=== PATIENT | female | born 1955 | race Caucasian/White ===

== ENCOUNTER → 2018-11-01 | Outpatient (CLI) | payer MEDICARE ==
--- NOTE | 2018-11-01 15:31 | BD ---
EXAMINATION TYPE: Axial Bone Density DATE OF EXAM: 11/01/2018 COMPARISON: NONE CLINICAL HISTORY: 63-year-old female screening for osteoporosis Height: 63.2 IN Weight: 164 LBS RISK FACTORS HISTORY OF: Active: YES Postmenopausal woman: AGE 52 MEDICATIONS: Additional Medications: HIGH BLOOD PRESSURE MEDS, BABY ASPIRIN EXAM MEASUREMENTS: Bone mineral densitometry was performed using the [employer] System. Bone mineral density as measured about the Lumbar spine is: ----- L1-L4(G/cm2): 1.336 T Score Values are as follows: ----- L2: 0.7 ----- L3: 1.4 ----- L4: 2.1 ----- L1-L4: 1.3 Bone mineral density BASELINE Bone mineral density about the R hip (g/cm2): 1.037 Bone mineral density about the L hip (g/cm2): 1.039 T Score values are as follows: -----R Neck: 0.0 -----L Neck: 0.0 -----R Total: 0.3 -----L Total: 0.4 Bone mineral density BASELINE IMPRESSION: Normal (Values between +1 and -1 indicate normal bone mass). Consider repeating this study in 5 year s or sooner if there is some new clinical indication. NOTE: T-SCORE=SD OF THE YOUNG ADULT MEAN.
--- NOTE | 2018-11-02 07:51 | MM ---
Reason for exam: screening (asymptomatic). Last mammogram was performed 2 years and 6 months ago. History: Patient is postmenopausal. Family history of breast cancer in maternal aunt and breast cancer in paternal grandmother. Benign US biopsy breast add'l VAD RT of the right breast, April 04, 2014. Benign US biopsy breast VAD RT of the right breast, March 30, 2014. Physical Findings: A clinical breast exam by your physician is recommended on an annual basis and results should be correlated with mammographic findings. MG Screening Mammo w CAD Bilateral CC and MLO view(s) were taken. Prior study comparison: April 22, 2016, bilateral MG diagnostic mammo w CAD E[facility]IS. March 19, 2015, bilateral MG diagnostic mammo w CAD E[facility]. There are scattered fibroglandular densities. Previous mammotome biopsy in the right breast. There is chronic nodularity in the right breast. No significant changes when compared with prior studies. ASSESSMENT: Benign, BI-RAD 2 RECOMMENDATION: Routine screening mammogram of both breasts in 1 year.
== END | disposition home or self-care (01) ==
LOC: RADMAMWWP 07:34
PROVIDERS: ATTEND Family Medicine
DX: Z12.31 Encounter for screening mammogram for malignant neoplasm of breast (principal); Z13.820 Encounter for screening for osteoporosis
CPT/HCPCS: 77067; 77080

== ENCOUNTER → 2019-11-15 | Outpatient (CLI) | payer MEDICARE ==
--- NOTE | 2019-11-17 14:15 | MM ---
Reason for exam: screening (asymptomatic). Last mammogram was performed 1 year ago. History: Patient is postmenopausal. Family history of breast cancer in maternal aunt and breast cancer in paternal grandmother. Benign US biopsy breast add'l VAD RT of the right breast, April 04, 2014. Benign US biopsy breast VAD RT of the right breast, March 30, 2014. Physical Findings: A clinical breast exam by your physician is recommended on an annual basis and results should be correlated with mammographic findings. MG Screening Mammo w CAD Bilateral CC and MLO view(s) were taken. Prior study comparison: November 01, 2018, bilateral MG screening mammo w CAD. April 22, 2016, bilateral MG diagnostic mammo w CAD ELLIS. There are scattered fibroglandular densities. Previous mammotome biopsy in the right breast x 2. There is chronic nodularity in the right breast. ASSESSMENT: Benign, BI-RAD 2 RECOMMENDATION: Routine screening mammogram of both breasts in 1 year.
== END | disposition home or self-care (01) ==
LOC: RADMAMWWP 10:13
PROVIDERS: ATTEND Family Medicine
DX: Z12.31 Encounter for screening mammogram for malignant neoplasm of breast (principal)
CPT/HCPCS: 77067

== ENCOUNTER → 2021-02-13 | Outpatient (CLI) | payer MEDICARE ==
--- NOTE | 2021-02-14 12:55 | BD ---
EXAMINATION TYPE: Axial Bone Density DATE OF EXAM: 02/13/2021 COMPARISON: NONE CLINICAL HISTORY: Height: 5 FT 4 IN Weight: 176 FRAX RISK QUESTIONS: Alcohol (3 or more units per day): NO Family History (Parent hip fracture): NO Glucocorticoids (More than 3mos): NO (Ex: prednisone, prednisolone, methylprednisolone, dexamethasone, and hydrocortisone). History of Fracture in Adulthood: NO Secondary Osteoporosis: 1. Type 1 Diabetes: NO 2. Hyperthyroidism: NO 3. Menopause before 45: NO 4. Malnutrition: NO 5. Chronic liver disease: NO Rheumatoid Arthritis: NO Current Tobacco Use: NO RISK FACTORS HISTORY OF: Surgery to Spine/Hip(right/left)/Wrist (right/left): NO Family History of Osteoporosis: NO Active: YES Diet low in dairy products/other sources of calcium: NO Postmenopausal woman: AGE 52 Take estrogen and/or progesterone medications: NONE Lost more than 2 inches in height since high school: NO MEDICATIONS: Additional Medications: BLOOD PRESSURE MEDS , Additional History: EXAM MEASUREMENTS: Bone mineral densitometry was performed using the [email or web address] System. Bone mineral density as measured about the Lumbar spine is: ----- L1-L4(G/cm2): 1.309 T Score Values are as follows: ----- L2: -0.1 ----- L3: 1.7 ----- L4: 1.8 ----- L1-L4: 1.1 Bone mineral density has: DECREASED -1.9 % since study of: 2017 Bone mineral density about the R hip (g/cm2): 0.996 Bone mineral density about the L hip (g/cm2): 0.989 T Score values are as follows: -----R Neck: -0.3 -----L Neck: -0.3 -----R Total: -0.1 -----L Total: 0.0 Bone mineral density has: DECREASED -4.8 % since study of: 2017 IMPRESSION: Normal (Values between +1 and -1 indicate normal bone mass). Consider repeating this study in 5 year s or sooner if there is some new clinical indication. NOTE: T-SCORE=SD OF THE YOUNG ADULT MEAN.
--- NOTE | 2021-02-15 11:00 | MM ---
Reason for exam: screening (asymptomatic). Last mammogram was performed 1 year and 3 months ago. History: Patient is postmenopausal. Family history of breast cancer in maternal aunt and breast cancer in paternal grandmother. Benign US biopsy breast add'l VAD RT of the right breast, April 04, 2014. Benign US biopsy breast VAD RT of the right breast, March 30, 2014. Physical Findings: A clinical breast exam by your physician is recommended on an annual basis and results should be correlated with mammographic findings. MG 3D Screening Mammo W/Cad Bilateral CC and MLO view(s) were taken. Prior study comparison: November 15, 2019, bilateral MG screening mammo w CAD. November 01, 2018, bilateral MG screening mammo w CAD. There are scattered fibroglandular densities. Previous mammotome biopsy in the right breast. No significant changes when compared with prior studies. ASSESSMENT: Benign, BI-RAD 2 RECOMMENDATION: Routine screening mammogram of both breasts in 1 year.
== END | disposition home or self-care (01) ==
LOC: RADMAMWWP 14:35
PROVIDERS: ATTEND Family Medicine
DX: Z12.31 Encounter for screening mammogram for malignant neoplasm of breast (principal); Z78.0 Asymptomatic menopausal state; Z80.3 Family history of malignant neoplasm of breast
CPT/HCPCS: 77063; 77067; 77080

== ENCOUNTER → 2021-05-29 | Outpatient (CLI) | payer MEDICARE ==
[2021-05-29 10:29] VITALS: BP 173/70; PULSE 77; RESP 18; TEMP 98
--- NOTE | 2021-05-29 11:39 | P.HPOB ---
History of Present Illness H&P Date: 05/29/21 Chief Complaint: The patient is here for her routine gynecologic exam and ma mmogram. This is a 66-year-old with an LMP 2005. The patient is here to establish with this office. She states it is been more than 20 years since her last pelvic exam. She is without gynecologic complaints and denies any postmenopausal bleeding. Review of Systems She lost weight with [employer] more than one year ago, but has gained about 32 pounds back over the past year and a half. She attributes this to COVID pandemic weight gain. She denies respiratory, cardiac and G.I. problems. She denies maltreatment or problems with falling. : she denies any significant problems with urinary leakage. 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 History of Any Multi-Drug Resistant Organisms: None Reported Past Surgical History: Breast Surgery Additional Past Surgical History / Comment(s): Benign breast biopsies. Colonoscopy 2014(next after 10yr) Past Psychological History: No Psychological Hx Reported Smoking Status: Never smoker Past Alcohol Use History: None Reported Past Drug Use History: None Reported Additional History: She has been since 1971 and is sexually active. 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 She does watch some of her grandkids during the week. - Past Family History Father Family Medical History: Myocardial Infarction ([place]) Additional Family Medical History / Comment(s): . Paternal grandmother had breast cancer. Mother Family Medical History: CVA/TIA Additional Family Medical History / Comment(s): . Maternal aunt had breast cancer. Medications and Allergies Home Medications Medication Instructions Recorded Confirmed Type Aspirin [Adult Low Dose Aspirin EC] 81 mg PO DAILY 07/25/16 05/29/21 History Lisinopril/Hydrochlorothiazide 0.5 tab PO QAM 07/25/16 05/29/21 History [Lisinopril-Hctz 20-25 mg Tab] Lisinopril/Hydrochlorothiazide 1 tab PO HS 07/25/16 05/29/21 History [Lisinopril-Hctz 20-25 mg Tab] Spironolactone [Aldactone] 12.5 mg PO DAILY 05/29/21 05/29/21 History Allergies Allergy/AdvReac Type Severity Reaction Status Date / Time No Known Allergies Allergy Verified 05/29/21 10:06 Exam Vital Signs Temp Pulse Resp BP Pulse Ox 05/29/21 10:06 98.0 F 77 18 173/70 97 Intake and Output 05/28/21 05/29/21 05/29/21 22:59 06:59 14:59 Other: Weight 82.554 kg Height 5 feet 4 inches, weight 182 pounds, BMI 31.2. This is a well-developed well-nourished white female who is alert and oriented times 3 in no acute distress. HEENT: Within normal limits. NECK: Supple without mass or thyromegaly. CHEST AND LUNGS: Clear to auscultation. HEART: Regular rate and rhythm. BREASTS: Are without mass or discharge. AXILLARY EXAM: Negative for adenopathy. BACK: Negative for CVA tenderness. ABDOMEN: Soft, nontender, without palpable masses. PELVIC EXAM: Normal external genitalia with mild atrophy. Cervix and vagina appear normal is mild atrophy. There is no unusual discharge. There is no evidence of prolapse. The uterus is midposition, nongravid size and nontender. There are no palpable adnexal masses or tenderness. RECTAL EXAM: Rectovaginal exam is negative for mass or tenderness and is negative for occult blood. EXTREMITIES: Nontender. IMPRESSION: 1. 66-year-old menopausal female with normal gynecologic exam. 2. Inadequate cervical screening in the past years since it has been about 25 years since her last pelvic exam. 3. Elevated blood pressure with history of chronic hypertension. PLAN: 1. Pap smear was performed. This will be continued until we have had 3 ne gative Pap smears within 10 years. 2. Self breast awareness was discussed with the patient. 3. Screening mammogram was recently done on 02/13/2021 and was benign. This will be repeated in 1 year. 4. Osteoporosis prevention was discussed. I have stressed the importance of adequate calcium, vitamin D and regular exercise. Recommended amounts of calcium and vitamin D were also discussed. Bone density testing was recently done on 02/13/2021 and was normal. We will plan on repeating this in about 5-6 years. 5. We have discussed her elevated blood pressure. I have recommended that she check her own blood pressure at home on a regular basis since she does have a blood pressure cuff. She will follow-up with Dr. Sanchez for blood pressure elevations. 6. She has not received the Covid vaccination. I recommended that she reconsider her decision on not getting the vaccination. We have discussed reasons why this would be beneficial. She will reconsider it. 7. She was advised to return in one year for her annual well woman exam.
== END ==
LOC: WWCWWP 09:53
PROVIDERS: ATTEND Obstetrics & Gynecology
DX: Z01.419 Encounter for gynecological examination (general) (routine) without abnormal findings (principal); I10 Essential (primary) hypertension; Z98.890 Other specified postprocedural states; Z79.899 Other long term (current) drug therapy

== ENCOUNTER → 2021-06-12 | Outpatient (CLI) | payer MEDICARE ==
--- NOTE | 2021-06-12 09:44 | P.PN ---
Progress Note - Text Progress Note Date: 06/12/21 The patient has come for a repeat Pap smear. Pap smear done on 05/29/2021 came back as unsatisfactory because of limited cellularity. Blood pressure 160/95, height 5 feet 4 inches, weight 182 pounds, temperature 98.2, pulse 83, pulse oximeter 99%. Cervix and vagina appear normal. There is no unusual discharge. Repeat Pap smear was performed.
== END ==
DX: Z01.42 Encounter for cervical smear to confirm findings of recent normal smear following initial abnormal smear (principal)

== ENCOUNTER 2021-12-16 14:32 | Emergency (ER) | payer MEDICARE ==
[2021-12-16 14:46] VITALS: TEMP 99.2
[2021-12-16 15:29] LABS: Basophils % (A) 0 %; Eosinophils # (A) 0.1 k/uL (0-0.7); Eosinophils % (A) 1 %; HCT 38.9 % (34.0-46.0); HGB 13.1 gm/dL (11.4-16.0); Lymphocytes # (A) 2.7 k/uL (1.0-4.8); Lymphocytes % (A) 26 %; MCH 30.7 pg (25.0-35.0); MCHC 33.8 g/dL (31.0-37.0); MCV 90.9 fL (80.0-100.0); Mean Platelet Volume 7.6; Monocytes # (A) 0.6 k/uL (0-1.0); Monocytes % (A) 5 %; Neutrophils % (A) 67 %; Platelet Count 346 k/uL (150-450); RBC 4.28 m/uL (3.80-5.40); RDW 12.7 % (11.5-15.5); WBC 10.5 k/uL (3.8-10.6)
--- NOTE | 2021-12-16 15:36 | ED ---
SOB HPI - General Chief Complaint: Shortness of Breath Stated Complaint: Chest Heavy Time Seen by Provider: 12/16/21 14:52 Source: patient Mode of arrival: wheelchair Limitations: no limitations - History of Present Illness Initial Comments: Patient is a 66-year-old female with a past medical history of retention who presents to the emergency department with a chief complaint of chest heaviness and shortness of breath since yesterday. Patient reports that she was diagnosed with COVID-19 2.5 weeks ago and on 12/11/21 she started to feel a lot less sym ptomatic. Yesterday she experienced new onset chest heaviness and worsening of shortness of breath. Patient states that there is general heaviness all over the chest and that she is winded easier. She has never experienced chest heaviness before. She denies fever, chills, headache, congestion, r hinorrhea,dizziness, palpitations, abdominal pain, and bilateral leg pain. Patient denies alcohol and tobacco abuse. Family history of heart disease includes mother with hypertension and father with myocardial infarction. Of note, patient is feeling very anxious today as is in preop for multiple stent insertion due to having a heart attack today. - Related Data Home Medications Medication Instructions Recorded Confirmed Aspirin [Adult Low Dose Aspirin EC] 81 mg PO DAILY 07/25/16 06/12/21 Lisinopril/Hydrochlorothiazide 0.5 tab PO QAM 07/25/16 06/12/21 [Lisinopril-Hctz 20-25 mg Tab] Lisinopril/Hydrochlorothiazide 1 tab PO HS 07/25/16 06/12/21 [Lisinopril-Hctz 20-25 mg Tab] Spironolactone [Aldactone] 12.5 mg PO DAILY 05/29/21 06/12/21 Ascorbic Acid [Vitamin C] 1,000 mg PO DAILY 12/16/21 12/16/21 Calcium Carbonate/Vitamin D3 1 cap PO DAILY 12/16/21 12/16/21 [Calcium 600 mg-D3 10 Mcg (400 Iu)] Multivitamins, Thera [Multivitamin 1 tab PO DAILY 12/16/21 12/16/21 (formulary)] Zinc 50 mg PO DAILY 12/16/21 12/16/21 Previous Rx's Medication Instructions Recorded Albuterol Inhaler [Ventolin Hfa 2 puff INHALATION RT-QID 10 Days 12/16/21 Inhaler] #8 gm Allergies Allergy/AdvReac Type Severity Reaction Status Date / Time No Known Allergies Allergy Verified 12/16/21 16:10 Review of Systems ROS Statement: Those systems with pertinent positive or pertinent negative responses have been documented in the HPI. ROS Other: All systems not noted in ROS Statement are negative. 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 History of Any Multi-Drug Resistant Organisms: None Reported Past Surgical History: Breast Surgery Additional Past Surgical History / Comment(s): Benign breast biopsies. Colonoscopy 2014(next after 10yr) Past Psychological History: No Psychological Hx Reported Smoking Status: Never smoker Past Alcohol Use History: None Reported Past Drug Use History: None Reported - Past Family History Father Family Medical History: Myocardial Infarction ([place]) Additional Family Medical History / Comment(s): . Paternal grandmother had breast cancer. Mother Family Medical History: CVA/TIA Additional Family Medical History / Comment(s): . Maternal aunt had breast cancer. General Exam Limitations: no limitations General appearance: alert, in no apparent distress Head exam: Present: atraumatic, normocephalic, normal inspection Eye exam: Present: normal appearance, PERRL, EOMI. Absent: scleral icterus, conjunctival injection, periorbital swelling ENT exam: Present: normal exam, mucous membranes moist Respiratory exam: Present: normal lung sounds bilaterally. Absent: respiratory distress, wheezes, rales, rhonchi, stridor Cardiovascular Exam: Present: regular rate, normal rhythm, normal heart sounds. Absent: systolic murmur, diastolic murmur, rubs, gallop, clicks GI/Abdominal exam: Present: soft. Absent: distended, tenderness, guarding, rebound, rigid Extremities exam: Present: normal inspection, full ROM, normal capillary refill. Absent: tenderness, pedal edema, joint swelling, calf tenderness Neurological exam: Present: alert, oriented X3, CN II-XII intact Psychiatric exam: Present: normal affect, normal mood Skin exam: Present: warm, dry, intact, normal color. Absent: rash Course Vital Signs 12/16/21 12/16/21 14:43 16:21 Temperature 99.2 F Pulse Rate 80 67 Respiratory 16 20 Rate Blood Pressure 161/69 136/65 O2 Sat by Pulse 100 100 Oximetry Medical Decision Making - Medical Decision Making This is a 66-year-old female with a past medical history of hypertension and COVID-19 diagnosed 2.5 weeks ago who presents with chest heaviness and shortness of breath 1 day. She is hemodynamically stable. EKG reveals sinus rhythm with frequent premature ventricular complexes. CBC is within normal limits. CMP r eveals moderately high BUN and creatinine. Patient is COVID-19 positive. D- dimer is negative. Troponin is negative 1. Chest x-ray reveals mild cardiomegaly without acute pulmonary process. Patient given saline bolus for JOSUE. On reevaluation patient has no chest heaviness. Patient has heart score of 5. Results discussed with patient. Risks versus benefits discussed. Patient reports she would like to go home with strict return parameters. I will discharge her with an inhaler for shortness of breath. - Lab Data Result diagrams: 12/16/21 15:18 12/16/21 15:18 Lab Results 12/16/21 12/16/21 12/16/21 Range/Units 15:18 15:18 15:18 WBC 10.5 (3.8-10.6) k/uL RBC 4.28 (3.80-5.40) m/uL Hgb 13.1 (11.4-16.0) gm/dL Hct 38.9 (34.0-46.0) % MCV 90.9 (80.0-100.0) fL MCH 30.7 (25.0-35.0) pg MCHC 33.8 (31.0-37.0) g/dL RDW 12.7 (11.5-15.5) % Plt Count 346 (150-450) k/uL MPV 7.6 Neutrophils % 67 % Lymphocytes % 26 % Monocytes % 5 % Eosinophils % 1 % Basophils % 0 % Neutrophils # 7.0 (1.3-7.7) k/uL Lymphocytes # 2.7 (1.0-4.8) k/uL Monocytes # 0.6 (0-1.0) k/uL Eosinophils # 0.1 (0-0.7) k/uL Basophils # 0.0 (0-0.2) k/uL D-Dimer (<0.60) mg/L FEU Sodium 128 L (137-145) mmol/L Potassium 5.2 H (3.5-5.1) mmol/L Chloride 100 (98-107) mmol/L Carbon Dioxide 23 (22-30) mmol/L Anion Gap 5 mmol/L BUN 42 H (7-17) mg/dL Creatinine 1.33 H (0.52-1.04) mg/dL Est GFR (CKD-EPI)AfAm 47 (>60 ml/min/1.73 sqM) Est GFR (CKD-EPI)NonAf 41 (>60 ml/min/1.73 sqM) Glucose 97 (74-99) mg/dL Calcium 8.9 (8.4-10.2) mg/dL Total Bilirubin 0.7 (0.2-1.3) mg/dL AST 30 (14-36) U/L ALT 61 H (4-34) U/L Alkaline Phosphatase 72 (38-126) U/L Troponin I <0.012 (0.000-0.034) ng/mL Total Protein 6.7 (6.3-8.2) g/dL Albumin 3.8 (3.5-5.0) g/dL Coronavirus (PCR) (Not Detectd) 12/16/21 12/16/21 Range/Units 15:18 15:18 WBC (3.8-10.6) k/uL RBC (3.80-5.40) m/uL Hgb (11.4-16.0) gm/dL Hct (34.0-46.0) % MCV (80.0-100.0) fL MCH (25.0-35.0) pg MCHC (31.0-37.0) g/dL RDW (11.5-15.5) % Plt Count (150-450) k/uL MPV Neutrophils % % Lymphocytes % % Monocytes % % Eosinophils % % Basophils % % Neutrophils # (1.3-7.7) k/uL Lymphocytes # (1.0-4.8) k/uL Monocytes # (0-1.0) k/uL Eosinophils # (0-0.7) k/uL Basophils # (0-0.2) k/uL D-Dimer 0.31 (<0.60) mg/L FEU Sodium (137-145) mmol/L Potassium (3.5-5.1) mmol/L Chloride (98-107) mmol/L Carbon Dioxide (22-30) mmol/L Anion Gap mmol/L BUN (7-17) mg/dL Creatinine (0.52-1.04) mg/dL Est GFR (CKD-EPI)AfAm (>60 ml/min/1.73 sqM) Est GFR (CKD-EPI)NonAf (>60 ml/min/1.73 sqM) Glucose (74-99) mg/dL Calcium (8.4-10.2) mg/dL Total Bilirubin (0.2-1.3) mg/dL AST (14-36) U/L ALT (4-34) U/L Alkaline Phosphatase (38-126) U/L Troponin I (0.000-0.034) ng/mL Total Protein (6.3-8.2) g/dL Albumin (3.5-5.0) g/dL Coronavirus (PCR) Detected A (Not Detectd) - EKG Data EKG Comments: EKG taken at 15:05 Sinus rhythm with frequent premature ventricular complexes Ventricular rate 80 TX interval 124 QRS duration 74 QT/QTC 364/419 Disposition Clinical Impression: COVID-19 Disposition: HOME SELF-CARE Condition: Good Instructions (If sedation given, give patient instructions): Coronavirus Disease 2019 (COVID-19) Additional Instructions: Follow-up with primary care provider in one to two days. Return to the ER if she experienced new, concerning, worsening symptoms. Is patient prescribed a controlled substance at d/c from ED?: No Referrals: Monica Sanchez MD [Primary Care Provider] - 1-2 days Time of Disposition: 17:12
--- NOTE | 2021-12-16 15:40 | XR ---
EXAMINATION TYPE: XR chest 2V DATE OF EXAM: 12/16/2021 COMPARISON: NONE HISTORY: Cough and shortness of breath. TECHNIQUE: Frontal and lateral views of the chest are obtained. FINDINGS: There is no suspicious focal air space opacity, pleural effusion, or pneumothorax seen. T he cardiac silhouette size is mildly enlarged. Multilevel spurring in the thoracic spine. IMPRESSION: Mild cardiomegaly without acute pulmonary process.
[2021-12-16 15:46] LABS: Albumin 3.8 g/dL (3.5-5.0); Calcium 8.9 mg/dL (8.4-10.2); Potassium 5.2 mmol/L (3.5-5.1); Total Bilirubin 0.7 mg/dL (0.2-1.3); Total Protein 6.7 g/dL (6.3-8.2)
[2021-12-16] MEDS ORDERED: SODIUM CHLORIDE 0.9% 500 ML 500 ML IV STA (15:58)
[2021-12-16 16:22] VITALS: BP 136/65; PULSE 67; RESP 20
== END 2021-12-16 17:26 | disposition home or self-care (01) ==
LOC: EC 14:32
DX: U07.1 COVID-19 (principal); I10 Essential (primary) hypertension; Z79.82 Long term (current) use of aspirin
CPT/HCPCS: 36415; 71046; 80053; 84484; 85025; 85379; 87635; 93005; 96360; 99285

== ENCOUNTER → 2022-05-27 | Outpatient (CLI) | payer MEDICARE ==
--- NOTE | 2022-05-28 08:47 | MM ---
Reason for Exam: Screening (asymptomatic). Last mammogram was performed 1 year(s) and 4 month(s) ago. Patient History: Menarche at age 10. First Full-Term at age 18. Postmenopausal. 04/04/2014, Benign Core Biopsy on the right side. 03/30/2014, Benign Core Biopsy on the right side. Paternal grandmother had breast cancer. Maternal aunt had breast cancer. Risk Values: Rupinder 5 year model risk: 2.3%. NCI Lifetime model risk: 7.1%. Prior Study Comparison: 11/01/2018 Bilateral Screening Mammogram, [facility]. 11/15/2019 Bilateral Screening Mammogram, [facility]. 02/13/2021 Bilateral Screening Mammogram, [facility]. Tissue Density: There are scattered fibroglandular densities. Findings: Analyzed By CAD. Few scattered benign-appearing round calcifications bilaterally are redemonstrated. Mammotome biopsy clip right breast again seen near well-circumscribed round mass. There is no suspicious group of microcalcifications or new suspicious mass in either breast. Overall Assessment: Benign, BI-RAD 2 Management: Screening Mammogram of both breasts in 1 year. A clinical breast exam by your physician is recommended on an annual basis and results should be correlated with mammographic findings. Electronically signed and approved by: Bennett Mckeon M.D.
== END | disposition home or self-care (01) ==
LOC: RADMAMWWP 07:19
PROVIDERS: ATTEND Family Medicine
DX: Z12.31 Encounter for screening mammogram for malignant neoplasm of breast (principal); Z78.0 Asymptomatic menopausal state; Z80.3 Family history of malignant neoplasm of breast
CPT/HCPCS: 77063; 77067

== ENCOUNTER → 2022-07-01 | Outpatient (CLI) | payer MEDICARE ==
[2022-07-01 14:09] VITALS: BP 152/84; PULSE 94; RESP 18; TEMP 98.5
--- NOTE | 2022-07-01 14:49 | P.HPOB ---
History of Present Illness H&P Date: 07/01/22 Chief Complaint: The patient is here for her routine gynecologic exam. This is a 67-year-old with an LMP of 2006. The patient is without gynecologic complaints and denies any postmenopausal bleeding. Review of Systems The patient has gained 21 pounds over the last year. Respiratory: She has been having some shortness of breath with exertion since she had Covid in November of this year. She has been seeing her PCP for this. She denies cardiac or GI problems. 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 History of Any Multi-Drug Resistant Organisms: None Reported Past Surgical History: Breast Surgery Additional Past Surgical History / Comment(s): Benign breast biopsies. Colonoscopy 2014(next after 10yr) Past Psychological History: No Psychological Hx Reported Smoking Status: Never smoker Past Alcohol Use History: None Reported Past Drug Use History: None Reported Additional History: She has been since 1971 and is sexually active. She is retired. - Past Family History Father Family Medical History: Myocardial Infarction ([place]) Additional Family Medical History / Comment(s): . Paternal grandmother had breast cancer. Mother Family Medical History: CVA/TIA Additional Family Medical History / Comment(s): . Maternal aunt had breast cancer. Medications and Allergies Home Medications Medication Instructions Recorded Confirmed Type Aspirin [Adult Low Dose Aspirin EC] 81 mg PO DAILY 07/25/16 07/01/22 History Lisinopril/Hydrochlorothiazide 0.5 tab PO HS 07/25/16 07/01/22 History [Lisinopril-Hctz 20-25 mg Tab] Lisinopril/Hydrochlorothiazide 1 tab PO DAILY 07/25/16 07/01/22 History [Lisinopril-Hctz 20-25 mg Tab] Spironolactone [Aldactone] 25 mg PO DAILY 05/29/21 07/01/22 History Albuterol Inhaler [Ventolin Hfa 2 puff INHALATION RT-QID 10 Days 12/16/21 07/01/22 Rx Inhaler] #8 gm Ascorbic Acid [Vitamin C] 1,000 mg PO DAILY 12/16/21 07/01/22 History Calcium Carbonate/Vitamin D3 1 cap PO DAILY 12/16/21 07/01/22 History [Calcium 600 mg-D3 10 Mcg (400 Iu)] Multivitamins, Thera [Multivitamin 1 tab PO DAILY 12/16/21 07/01/22 History (formulary)] Zinc 50 mg PO DAILY 12/16/21 07/01/22 History Allergies Allergy/AdvReac Type Severity Reaction Status Date / Time No Known Allergies Allergy Verified 07/01/22 14:04 Exam Vital Signs Temp Pulse Resp BP Pulse Ox 07/01/22 14:05 98.5 F 94 18 152/84 100 Intake and Output 06/30/22 07/01/22 07/01/22 22:59 06:59 14:59 Other: Weight 92.079 kg Height 5 feet 4 inches, weight 203 pounds, BMI 36.0. This is a well-developed well-nourished white female who is alert and oriented times 3 in no acute distress. HEENT: Within normal limits. NECK: Supple without mass or thyromegaly. CHEST AND LUNGS: Clear to auscultation. HEART: Regular rate and rhythm. BREASTS: Are without mass or discharge. AXILLARY EXAM: Negative for adenopathy. BACK: Negative for CVA tenderness. ABDOMEN: Soft, nontender, without palpable masses. PELVIC EXAM: Normal external genitalia with mild atrophy. Cervix and vagina appear normal with mild atrophy. There is no unusual discharge. There is no evidence of prolapse. The uterus is midposition, nongravid size and nontender. There are no palpable adnexal masses or tenderness. RECTAL EXAM: Rectovaginal exam is negative for mass or tenderness and is negative for occult blood. EXTREMITIES: Nontender. IMPRESSION: 1. 67-year-old menopausal female with normal gynecologic exam. PLAN: 1. Pap smear was deferred since she had a negative one on 06/04/2021. This was the first Pap smear in over 20 years. We will continue cervical screening because of her and adequate screening prior to 2020. We will consider discontinuing Pap smears after she has had 3 negative Pap smears within a 10 year period. 2. Self breast awareness was discussed with the patient. We have also discussed symptoms associated with inflammatory breast cancer. 3. Screening mammogram was done on 05/27/2022 and was benign. She will repeat this after 1 year. 4. Osteoporosis prevention was discussed. I have stressed the importance of adequate calcium, vitamin D and regular exercise. Recommended amounts of calcium and vitamin D were also discussed. We will plan on repeating bone density test in 2025 since her last one was normal. 5. We've discussed weight control. I have stressed the importance of good nutrition and regular exercise. She will try to eat regular meals. I also asked her to try to shoot for 25 g of fiber per day. She will consider going back to [employer] which she was successful with in the past. 6. She has not gotten a Covid vaccination but did have Covid in November of this year. I have recommended that she look into getting vaccinated for this. 7. She was advised to return in one year for her annual well woman exam.
== END ==
LOC: WWCWWP 14:00
PROVIDERS: ATTEND Obstetrics & Gynecology
DX: Z01.419 Encounter for gynecological examination (general) (routine) without abnormal findings (principal); I10 Essential (primary) hypertension; Z78.0 Asymptomatic menopausal state

== ENCOUNTER → 2023-08-19 | Outpatient (CLI) | payer MEDICARE ==
[2023-08-19 10:32] VITALS: BP 132/75; PULSE 78; RESP 16; TEMP 98.3
--- NOTE | 2023-08-19 11:21 | P.HPOB ---
History of Present Illness H&P Date: 08/19/23 Chief Complaint: The patient is here for her routine gynecologic exam and ma mmogram. This is a 68-year-old with an LMP of 2006. The patient is without gynecologic complaints and denies any postmenopausal bleeding. Review of Systems She has gained about 8 pounds over the past year. Respiratory: She states she can get slightly short of breath with exertion and this has been since she had Covid, but this is improving. She denies cardiac or GI problems. 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 History of Any Multi-Drug Resistant Organisms: None Reported Past Surgical History: Breast Surgery Additional Past Surgical History / Comment(s): Benign breast biopsies. Colonoscopy 2014(next after 10yr) Past Psychological History: No Psychological Hx Reported (PHQ-2 questionaire was given and she scores 0. This is a negative screen for depression.) Smoking Status: Never smoker Past Alcohol Use History: None Reported Past Drug Use History: None Reported Additional History: She has been since 1971 and is sexually active. She is retired. - Past Family History Father Family Medical History: Myocardial Infarction ([place]) Additional Family Medical History / Comment(s): . Paternal grandmother had breast cancer. Mother Family Medical History: CVA/TIA Additional Family Medical History / Comment(s): . Maternal aunt had breast cancer. Medications and Allergies Home Medications Medication Instructions Recorded Confirmed Type Aspirin [Adult Low Dose Aspirin EC] 81 mg PO DAILY 07/25/16 08/19/23 History Lisinopril/Hydrochlorothiazide 0.5 tab PO HS 07/25/16 08/19/23 History [Lisinopril-Hctz 20-25 mg Tab] Lisinopril/Hydrochlorothiazide 1 tab PO DAILY 07/25/16 08/19/23 History [Lisinopril-Hctz 20-25 mg Tab] Spironolactone [Aldactone] 25 mg PO DAILY 05/29/21 08/19/23 History Albuterol Inhaler [Ventolin Hfa 2 puff INHALATION RT-QID 10 Days 12/16/21 08/19/23 Rx Inhaler] #8 gm Ascorbic Acid [Vitamin C] 1,000 mg PO DAILY 12/16/21 08/19/23 History Calcium Carbonate/Vitamin D3 1 cap PO DAILY 12/16/21 08/19/23 History [Calcium 600 mg-D3 10 Mcg (400 Iu)] Multivitamins, Thera [Multivitamin 1 tab PO DAILY 12/16/21 08/19/23 History (formulary)] Zinc 50 mg PO DAILY 12/16/21 08/19/23 History Allergies Allergy/AdvReac Type Severity Reaction Status Date / Time No Known Allergies Allergy Verified 08/19/23 10: Exam Vital Signs Temp Pulse Resp BP Pulse Ox 08/19/23 10:23 98.3 F 78 16 132/75 100 Intake and Output 08/18/23 08/19/23 08/19/23 22:59 06:59 14:59 Other: Weight 95.708 kg Height 5 feet 4 inches, weight 211 pounds, BMI 36.2. This is a well-developed well-nourished white female who is alert and oriented times 3 in no acute distress. HEENT: Within normal limits. NECK: Supple without mass or thyromegaly. CHEST AND LUNGS: Clear to auscultation. HEART: Regular rate and rhythm. BREASTS: Are without mass or discharge. AXILLARY EXAM: Negative for adenopathy. BACK: Negative for CVA tenderness. ABDOMEN: Soft, nontender, without palpable masses. PELVIC EXAM: Normal external genitalia with mild atrophy. Cervix and vagina appear normal with mild atrophy. There is no unusual discharge. There is no evidence of prolapse. The uterus is midposition, nongravid size and nontender. There are no palpable adnexal masses or tenderness. RECTAL EXAM: Rectovaginal exam is negative for mass or tenderness and is negative for occult blood. EXTREMITIES: Nontender. IMPRESSION: 1. 68-year-old menopausal female with normal gynecologic exam. PLAN: 1. Pap smear was performed. She had a negative Pap smear on 06/04/2021. We will continue cervical screening until we have had 3 negative Pap smears in a row. At that time we will consider discontinuing Pap smears. 2. Self breast awareness was discussed with the patient. We have also discussed symptoms associated with inflammatory breast cancer. 3. Screening mammogram will be done today. 4. Osteoporosis prevention was discussed. I have stressed the importance of adequate calcium, vitamin D and regular exercise. Recommended amounts of calcium and vitamin D were also discussed. We will plan on repeating the bone d ensity testing in 2025 since her last one was normal. 5. PHQ-2 questionaire was given and she scores 0. This is a negative screen for depression. 6. The patient was advised to return in 1-2 years for her well woman examination.
--- NOTE | 2023-08-20 09:44 | MM ---
Reason for Exam: Screening (asymptomatic). Last mammogram was performed 1 year(s) and 3 month(s) ago. Patient History: Menarche at age 10. First Full-Term at age 18. Postmenopausal. 04/04/2014, Benign Core Biopsy on the right side. 03/30/2014, Benign Core Biopsy on the right side. Paternal grandmother had breast cancer. Maternal aunt had breast cancer. Risk Values: Rupinder 5 year model risk: 2.3%. NCI Lifetime model risk: 6.7%. Prior Study Comparison: 11/15/2019 Bilateral Screening Mammogram, [facility]. 02/13/2021 Bilateral Screening Mammogram, [facility]. 05/27/2022 Bilateral MG 3D screening mammo w/cad, [facility]. Tissue Density: The breast tissue is heterogeneously dense. This may lower the sensitivity of mammography. Findings: Analyzed By CAD. There is no suspicious group of microcalcifications or new suspicious mass in either breast. Overall Assessment: Negative, BI-RAD 1 Management: Screening Mammogram of both breasts in 1 year. . Patient should continue monthly self-breast exams. A clinical breast exam by your physician is recommended on an annual basis. This exam should not preclude additional follow-up of suspicious palpable abnormalities. Note on Rupinder scores and lifetime risk: 1. A Rupinder score greater than 3% is considered moderate risk. If this is the case, consider specialist referral to assess eligibility for a risk reducing agent. 2. If overall lifetime risk for the development of breast cancer is 20% or higher, the patient may qualify for future screening with alternating mammogram and breast MRI. Electronically signed and approved by: Amador Ward M.D. Radiologis
== END | disposition home or self-care (01) ==
LOC: RADMAMWWP 09:47
PROVIDERS: ATTEND Obstetrics & Gynecology
DX: Z12.31 Encounter for screening mammogram for malignant neoplasm of breast (principal); Z78.0 Asymptomatic menopausal state; Z80.3 Family history of malignant neoplasm of breast
CPT/HCPCS: 77063; 77067

== ENCOUNTER → 2024-09-20 | Outpatient (CLI) | payer MEDICARE ==
[2024-09-20 11:34] VITALS: BP 172/84; PULSE 77; RESP 17; TEMP 97.6
--- NOTE | 2024-09-20 12:10 | P.HPOB ---
History of Present Illness H&P Date: 09/20/24 Chief Complaint: The patient is here for her routine gynecologic exam and ma mmogram. This is a 69-year-old G4, P4 with an LMP of 2006. Patient is without gynecologic complaints and denies any postmenopausal bleeding. Review of Systems The patient has lost 7 pounds over the last year. She has been trying to lose weight. She denies respiratory, cardiac, or G.I. problems. Past Medical History Past Medical History: Cancer, Hypertension Additional Past Medical History / Comment(s): Basal cell skin cancer of the scalp. 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 History of Any Multi-Drug Resistant Organisms: None Reported Past Surgical History: Breast Surgery Additional Past Surgical History / Comment(s): Benign breast biopsies. Colonoscopy 2014(next after 10yr) Past Psychological History: No Psychological Hx Reported Smoking Status: Never smoker Past Alcohol Use History: None Reported Past Drug Use History: None Reported Additional History: She has been since 1971 and is sexually active. She is retired. - Past Family History Father Family Medical History: Myocardial Infarction ([place]) Additional Family Medical History / Comment(s): . Paternal grandmother had breast cancer. Mother Family Medical History: CVA/TIA Additional Family Medical History / Comment(s): . Maternal aunt had breast cancer. Medications and Allergies Home Medications Medication Instructions Recorded Confirmed Type Aspirin [Adult Low Dose Aspirin EC] 81 mg PO DAILY 07/25/16 09/20/24 History Lisinopril/Hydrochlorothiazide 0.5 tab PO HS 07/25/16 09/20/24 History [Lisinopril-Hctz 20-25 mg Tab] Lisinopril/Hydrochlorothiazide 1 tab PO DAILY 07/25/16 09/20/24 History [Lisinopril-Hctz 20-25 mg Tab] Spironolactone [Aldactone] 25 mg PO DAILY 05/29/21 09/20/24 History Albuterol Inhaler [Ventolin Hfa 2 puff INHALATION RT-QID 10 Days 12/16/21 09/20/24 Rx Inhaler] #8 gm Ascorbic Acid [Vitamin C] 1,000 mg PO DAILY 12/16/21 09/20/24 History Calcium Carbonate/Vitamin D3 1 cap PO DAILY 12/16/21 09/20/24 History [Calcium 600 mg-D3 10 Mcg (400 Iu)] Multivitamins, Thera [Multivitamin 1 tab PO DAILY 12/16/21 09/20/24 History (formulary)] Zinc 50 mg PO DAILY 12/16/21 09/20/24 History Allergies Allergy/AdvReac Type Severity Reaction Status Date / Time No Known Allergies Allergy Verified 09/20/24 11:29 Exam Vital Signs Temp Pulse Resp BP Pulse Ox 09/20/24 11:30 97.6 F 77 17 172/84 97 Intake and Output 09/19/24 09/20/24 09/20/24 22:59 06:59 14:59 Other: Weight 92.533 kg Height 5 feet 4 inches, weight 204 pounds, BMI 35.0. This is a well-developed well-nourished right female who is alert and oriented times 3 in no acute distress. HEENT: Within normal limits. NECK: Supple without mass or thyromegaly. CHEST AND LUNGS: Clear to auscultation. HEART: Regular rate and rhythm. BREASTS: Are without mass or discharge. AXILLARY EXAM: Negative for adenopathy. BACK: Negative for CVA tenderness. ABDOMEN: Soft, nontender, without palpable masses. PELVIC EXAM: Normal external genitalia with mild atrophy. Cervix and vagina appear normal with mild atrophy. There is no unusual discharge. There is no evidence of prolapse. The uterus is midposition, nongravid size and nontender. There are no palpable adnexal masses or tenderness. RECTAL EXAM: Rectovaginal exam is negative for mass or tenderness and is negative for occult blood. EXTREMITIES: Nontender. IMPRESSION: 1. 69-year-old menopausal female with normal gynecologic exam. 2. Elevated blood pressure with history of chronic hypertension. PLAN: 1. Pap smear was deferred since she had a negative Pap smear on 08/19/2023. We will repeat this in 1 to 2 years and if that is negative we will discontinue Pap smears. 2. Self breast awareness was discussed with the patient. We have also discussed symptoms associated with inflammatory breast cancer. 3. Screening mammogram will be done today. 4. Osteoporosis prevention was discussed. I have stressed the importance of adequate calcium, vitamin D and regular exercise. Recommended amounts of calcium and vitamin D were also discussed. Bone density will be done today. 5. The patient was advised to return in 1-2 years for her well woman examination.
--- NOTE | 2024-09-21 21:32 | BD ---
EXAMINATION TYPE: EXAMINATION TYPE: Axial Bone Density DATE OF EXAM: 09/20/2024 CLINICAL HISTORY: 69 years old Female. ICD-10 CODE: Z78.0 POST MENOPAUSAL WITHOUT HRT , Z78.0 Height: 64 Weight: 204 FRAX RISK QUESTIONS: Alcohol (3 or more units per day): no Family History (Parent hip fracture): no Glucocorticoids (More than 3mos): no (Ex: prednisone, prednisolone, methylprednisolone, dexamethasone, and hydrocortisone). History of Fracture in Adulthood: no Secondary Osteoporosis: 1. Type 1 Diabetes: no 2. Hyperthyroidism: no 3. Menopause before 45: no 4. Malnutrition: no 5. Chronic liver disease: no Rheumatoid Arthritis: no Current Tobacco Use: no RISK FACTORS HISTORY OF: Surgery to Spine/Hip(right/left)/Wrist (right/left): no EXAM MEASUREMENTS: Bone mineral densitometry was performed using the [employer] System. Bone mineral density as measured about the Lumbar spine is: ----- L1-L4(G/cm2): 1.267 T Score Values are as follows: ----- L1: -0.3 ----- L2: 0.0 ----- L3: 1.4 ----- L4: 1.3 ----- L1-L4: 0.7 Z Score Values are as follows: ----- L1: 0.5 ----- L2: 0.8 ----- L3: 2.2 ----- L4: 2.1 ----- L1-L4: 1.5 Bone mineral density has: decreased -3.2 % since study of: 02.13.2021 Bone mineral density about the R hip (g/cm2): 1.001 Bone mineral density about the L hip (g/cm2): 1.023 T Score values are as follows: -----R Neck: -0.5 -----L Neck: -0.3 -----R Total: -0.1 -----L Total: 0.1 Z Score values are as follows: -----R Neck: 0.6 -----L Neck: 0.9 -----R Total: 0.8 -----L Total: 1.0 Bone mineral density has: increased 1.1 % since study of: 02.13.2020 FRAX%s: The graph provided illustrates a 7.5% chance for a major osteoporotic fx and a 0.6% chance fo r the hips probability for fx in 10 years time. IMPRESSION: Normal (Values between +1 and -1 indicate normal bone mass). Consider repeating this study in 5 year s or sooner if there is some new clinical indication. NOTE: T-SCORE=SD OF THE YOUNG ADULT MEAN. [facility], , 09/21/2024 9:29 PM
== END | disposition home or self-care (01) ==
LOC: WWCWWP 10:59
PROVIDERS: ATTEND Obstetrics & Gynecology
DX: Z12.31 Encounter for screening mammogram for malignant neoplasm of breast (principal); M81.8 Other osteoporosis without current pathological fracture; I10 Essential (primary) hypertension; Z80.3 Family history of malignant neoplasm of breast; Z78.0 Asymptomatic menopausal state; Z79.899 Other long term (current) drug therapy
CPT/HCPCS: 77063; 77067; 77080